=== PATIENT | male | born 1985 ===

== ENCOUNTER → 2022-10-24 | Outpatient (CLI) | payer OTHER | END | disposition home or self-care (01) | LOC: RAD 14:14 | PROVIDERS: ATTEND Orthopaedic Surgery | DX: M25.511 Pain in right shoulder (principal) ==

== ENCOUNTER 2024-06-18 04:22 | Emergency (ER) | payer OTHER ==
[~2024-06-18] VITALS: Ht 172.7 cm; Wt 79.4 kg
[2024-06-18] MEDS ORDERED: HYDROGEN PEROXIDE 473 ML BOTTLE TOP ONE (04:41)
[2024-06-18] MEDS ORDERED: POVIDONE-IODINE 118 ML BOTT TOP ONE (04:41)
[2024-06-18] MEDS ORDERED: TETANUS & DIPHTHERIA TOX,ADULT 0.5 ML VIAL IM STA (05:00)
[2024-06-18] MEDS ORDERED: CEFAZOLIN SODIUM 1,000 MG VIAL IM STA (05:00)
[2024-06-18] MEDS ORDERED: CEFAZOLIN SODIUM 1,000 MG VIAL ONE (05:05)
[2024-06-18] MEDS ORDERED: TETANUS DIPHTHERIA TOX. ADSOR 5 ML VIAL IM ONE (05:05)
== END 2024-06-18 05:32 | disposition home or self-care (01) ==
LOC: ER 04:22
DX: S01.112A Laceration without foreign body of left eyelid and periocular area, initial encounter (principal); Y08.89XA Assault by other specified means, initial encounter; Y93.89 Activity, other specified; Y92.59 Other trade areas as the place of occurrence of the external cause; Y99.8 Other external cause status